=== PATIENT | female | born 1955 | race Two or more races ===

== ENCOUNTER 2017-06-03 08:38 | Day surgery (SDC) | payer BC ==
[~2017-06-03] VITALS: Ht 157.5 cm; Wt 43.1 kg
[2017-06-03] VITALS (8 sets, daily range): BP systolic 95–117; BP diastolic 51–67
--- NOTE | 2017-06-03 08:04 | Anethesia Preoperative Eval ---
Anesthesia Pre-op PMH/ROS General Date of Evaluation: Jun 03, 2017 Time of Evaluation: 08:00 Anesthesiologist: JD ASA Score: ASA 2 Mallampati Score Class I : Soft palate, uvula, fauces, pillars visible Class II: Soft palate, uvula, fauces visible Class III: Soft palate, base of uvula visible Class IV: Only hard plate visible Mallampati Classification: Class II Surgeon: PAIGE Diagnosis: GI Bleed Surgical Procedure: EGD/Colonoscopy Anesthesia History: none Family History: no anesthesia problems Allergies: Coded Allergies: No Known Allergies (Unverified , 06/02/17) Medications: see eMAR Anesthesia Pre-op Phys. Exam Physician Exam Constitutional: NAD Neurologic: CN 2-12 intact Cardiovascular: RRR Respiratory: CTA Gastrointestinal: S/NT/ND Airway Exam Mallampati Score: Class II MO: full ROM: full Teeth: intact Anesthesia Pre-op A/P Risk Assessment & Plan Plan: MAC Status Change Before Surgery: No Pre-Antibiotics Given Within 1 Hr of Incision: No Rei Wiggins M.D. Jun 03, 2017 08:03
--- NOTE | 2017-06-03 08:05 | Immediate Post-Op Evaluation ---
Immediate Post-Op Evalulation Immediate Post-Op Evalulation Procedure: EGD/[place] Date of Evaluation: Jun 03, 2017 Time of Evaluation: 09:00 IV Fluids: 100 Blood Products: 0 Estimated Blood Loss: 0 Urinary Output: 0 Blood Pressure Systolic: 135 Blood Pressure Diastolic: 85 Pulse Rate: 70 Respiratory Rate: 16 O2 Sat by Pulse Oximetry: 99 Temperature (Fahrenheit): 98 Pain Score (1-10): 0 Nausea: No Vomiting: No Patient Status: awake, reacts, patent Hydration Status: adequate Given Within 1 Hr of Incision: Rei Cerna M.D. Jun 03, 2017 08:05
[~2017-06-03 08:38] MED LIST: LR 1000ml 1,000 ML IVLG SCH; Midazolam 2mg/2ml Inj IVP PRN; Morphine Sulfate 2mg/ml Inj IVP PRN; fentaNYL 100 mcg/2 mL IV PRN
[2017-06-03] MEDS ORDERED: SPIRIVA18 MCG INH (08:59)
[2017-06-03] MEDS ORDERED: TRAMADOL HCL50 MG ORAL (08:59)
[2017-06-03] MEDS ORDERED: SYMBICORT 1601 PUFFS INH (08:59)
[2017-06-03] MEDS ORDERED: ALBUTEROL SULF8.5 GM INH (08:59)
--- NOTE | 2017-06-03 10:50 | Short Stay Surgery H&P ---
History of Present Illness History of Present Illness Chief Complaint Anemia of iron deficiency and weight loss/GERDS HPI Ida Jim is a 62 year old female who was admitted on for Gerd,Gi Bleed/Anemia Patient History Allergies: Coded Allergies: No Known Allergies (Unverified , 06/02/17) PAST MEDICAL HISTORY: (1) Bronchial asthma (2) Anemia Past Surgeries: Social History: Medication History Scheduled Albuterol Sulfate* (Albuterol Sulfate Mdi*), 2 PUFF INH PRN, (Reported) Budesonide/Formoterol Fumarate (Symbicort 160-4.5 Mcg Inhaler), 1 PUFF INH TWICE A DAY, (Reported) Tiotropium [place]* (Spiriva*), 1 PUFF INH DAILY, (Reported) Tramadol Hcl* (Ultram*), 50 MG ORAL Q6HR, (Reported) Review of Systems Cardiovascular: Reports: no symptoms Respiratory: Reports: no symptoms Skeletal: Reports: no symptoms Gastrointestinal: Reports: no symptoms Genitourinary: Reports: no symptoms Neurologic: Reports: no symptoms Endocrine: Reports: no symptoms Hematologic: Reports: anemia Physical Exam Vital Signs Last Vital Signs Date Time Temp Pulse Resp B/P (MAP) Pulse Ox O2 Delivery O2 Flow Rate FiO2 06/03/17 09:05 98.9 82 18 97/56 99 Room Air Skin: normal HENT: normal Heart: normal Lungs: normal Abdomen: normal Extremities: normal Genitourinary: normal Plan Plan of Care Upper and the lower GI endoscopy Preop Interventions None. Summary of Findings See the reports Final Diagnosis: Attestation Are the patient's medical conditions optimized for surgery? Attestation Response: yes CARMEL GIBSON Jun 03, 2017 10:50
--- NOTE | 2017-06-03 10:51 | Pre-Procedure Note/Attestation ---
Pre-Procedure Note/Attestation Complete Prior to Procedure Planned Procedure: left Procedure Narrative: Upper and the lower GI endoscopic exam Indications for Procedure Pre-Operative Diagnosis: R/O Peptic ulcer with bleeding/tumors/polyps/gastritis/colitis Attestation I attest that I discussed the nature of the procedure; its benefits; risks and complications; and alternatives (and the risks and benefits of such alternatives ), prior to the procedure, with the patient (or the patient's legal customer loyalty representative). I attest that, if there was a reasonable possibility of needing a blood transfusion, the patient (or the patient's legal customer loyalty representative) was given the [place] [employer] standardized written summary, pursuant to the [place] Blood Safety Act ([place] Health and Safety Code # 1645, as amended). I attest that I re-evaluated the patient just prior to the surgery and that there has been no change in the patient's H&P, except as documented below: PAIGE,SAID Jun 03, 2017 10:50
[2017-06-03] MEDS ORDERED: Propofol 200mg/20ml IV ONE (11:00)
[2017-06-03] MEDS ORDERED: fentaNYL 100 mcg/2 mL IV ONE (11:00)
[2017-06-03] MEDS ORDERED: LR 1000ml ONE (11:00)
--- NOTE | 2017-06-03 11:39 | Endoscopy Procedure Note ---
Endoscopy Procedure Note Indication for Procedure: Anemia of iron deficiency with weight loss Procedures Performed: EGD - Completely normal Upper GI endoscopy noted with random biopsy from gastric body obtained., colonoscopy - Highly redundant left colon with poor colon prep; otherwise normal total colonoscopy noted though small diminutive polyps could not be ruled out due to poor prep. No gross bleeding pathology noted. Specimen: yes Pt Tolerated Procedure Well: Yes Estimated Blood Loss: none Anesthesiologist: Dr. Wiggins Anesthesia: moderate sedation Medication Given: see anesthesia record Implant(s) used?: No 50 yrs or older w/o bx or poly: Yes 10yrs. F/U not recommended: Yes If not recommended, why?: 10 yrs. F/U needed: Yes <3yrs. since last colonoscopy: No Med reason:<3 yrs.: System Reason:<3 yrs.: Last colonoscopy >= to 3yrs: Yes CARMEL GIBSON Jun 03, 2017 11:39
--- NOTE | 2017-06-03 11:41 | Discharge Instructions ---
Discharge Instructions Discharge Instructions Follow up with: See the docotor after 10 days in office after capsule endoscopy For Congestive Heart Failure Reminder Report to your physician any weight gain of 5 pounds or more in one week. CARMEL GIBSON Jun 03, 2017 11:41
--- NOTE | 2017-06-03 21:30 | Procedure Note ---
DATE OF PROCEDURE: 06/03/2017 PROCEDURE: Esophagogastroduodenoscopy with biopsy. PREOPERATIVE DIAGNOSES: 1. Iron-deficiency anemia. 2. Weight loss. 3. Rule out gastrointestinal bleeding. POSTOPERATIVE DIAGNOSES: Completely normal upper gastrointestinal endoscopy. No evidence of bleeding site noted in the upper gastrointestinal examination. Biopsy was taken per random from gastric body. MEDICATION USED: Per Dr. Wiggins. INSTRUMENT: GIF Olympus upper gastrointestinal video endoscope. DESCRIPTION OF PROCEDURE: The patient after arriving in endoscopy unit, she was told about risks and benefits of the procedure, which she accepted and signed informed consent. She was then put in the left lateral decubitus position. After adequate IV sedation, the scope was gently passed through the cricopharyngeal area and was lodged into the esophagus and gradually advanced towards gastroesophageal junction. The entire esophagus looked normal without any evidence of bleeding site, ulcers, stricture, varices, etc. The scope was then guided into the normal-looking gastroesophageal junction without any evidence of Willis's or hiatal hernia. The scope was then introduced into the stomach after insufflation of air. Area of upper, mid, and lower part of the stomach was seen and there was no any evidence of hemorrhagic spots, ulcers, hemangiomas, tumors, polyps, etc. One random biopsy from gastric body was obtained. Subsequently, scope was passed through the normal-looking pylorus. First and second portion of duodenum found to be completely normal. At this time, the scope was pulled back into the stomach. A retroflexion maneuver was applied. The area of the gastroesophageal junction was noted, which was again normal without any bleeding site or pathology. At this point, the scope was pulled out and the procedure was terminated. The patient tolerated the procedure well. Said Girish Fay DR: Gallito JOB#: [id number] CC:
--- NOTE | 2017-06-03 22:30 | Procedure Note ---
DATE OF PROCEDURE: 06/03/2017 PROCEDURE: Total colonoscopy. PREOPERATIVE DIAGNOSIS: Iron-deficiency anemia, rule out gastrointestinal bleeding. POSTOPERATIVE DIAGNOSIS: Highly redundant left colon with poor colonic preparation, otherwise completely normal study up to the base of the cecum as examined, though the presence of a small diminutive polypoid lesion could not be ruled out due to poor prep. MEDICATION USED: By Dr. Wiggins. INSTRUMENT: GIF Olympus videocolonoscope. DESCRIPTION OF PROCEDURE: The patient after arriving in endoscopy unit, was told about risks and benefits of the procedure, which she accepted and signed informed consent. At this time, the scope was advanced into the anorectal area and careful examination of this section revealed no pathology. There was no colitis, hemorrhoids, polyps, tumors, etc. At this point, the scope was advanced through a very redundant colon which was also filled with soft stools due to lack of adequate preparation. This made the examination quite lengthy and significantly difficult. However, with instrumentation of maneuvers, gradually the scope reached towards the splenic flexure. It was guarded into the transverse colon, right hepatic flexure, and finally right colon all the way to the base of the cecum where all these areas were covered with small pieces of stools and undigested food that had to be washed and irrigated. However, there was no evidence of pathology such as ulcerations, tumors, hemangiomas, etc. At this point, it has to be mentioned that the presence of small diminutive polypoid lesion could not be ruled out due to poor colonic prep. However, there was no gross pathology signifying the source of gastrointestinal bleeding causing iron-deficiency anemia with this patient. Finally, within 7 minutes, the scope was gradually pulled out and the procedure was terminated. The patient tolerated the procedure well and left the endoscopy room in a good condition. Said Girish Fay DR: Katlyn JOB#: [id number] CC:
== END 2017-06-03 13:10 | disposition home or self-care (01) ==
LOC: GAS 08:38
DX: D50.9 Iron deficiency anemia, unspecified (principal); R63.4 Abnormal weight loss; K21.9 Gastro-esophageal reflux disease without esophagitis; K29.70 Gastritis, unspecified, without bleeding; B96.81 Helicobacter pylori [H. pylori] as the cause of diseases classified elsewhere
CPT/HCPCS: 43239; 45378; 82270; J2704; J3010; J7120; 94003; 94150